=== PATIENT | female | born 1995 | race Two or more races ===

== ENCOUNTER 2024-03-16 18:47 | Emergency (ER) | payer MEDICAID, OTHER ==
[~2024-03-16] VITALS: Ht 167.6 cm; Wt 68.0 kg
--- NOTE | 2024-03-16 19:10 | NUR ---
Patient walked into ER c/o N/V with diarrhea that started this morning.
--- NOTE | 2024-03-16 19:28 | NUR ---
Dr. Sanchez at bedside for MSE.
[2024-03-16 19:51] LABS: BASOPHILS % (AUTO) 0.4 % (0.0-2.0); HEMATOCRIT 45.3 % (31.2-41.9); HEMOGLOBIN 15.1 g/dL (10.9-14.3); LYMPHOCYTES # (AUTO) 0.5 K/uL (0.8-4.8); LYMPHOCYTES % (AUTO) 7.9 % (20.5-51.5); MEAN CORPUSCULAR HEMOGLOBIN 27.4 uug (24.7-32.8); MEAN CORPUSCULAR HGB CONC 33 g/dL (32.3-35.6); MEAN CORPUSCULAR VOLUME 82.3 fL (75.5-95.3); MONOCYTES # (AUTO) 0.2 K/uL (0.1-1.30); MONOCYTES % (AUTO) 3.3 % (0.0-11.0); NEUTROPHILS # (AUTO) 6.1 K/uL (1.8-8.9); NEUTROPHILS % (AUTO) 88.4 % (38.5-71.5); PLATELET COUNT (AUTO) 241 K/uL (179-408); RED BLOOD CELL COUNT(AUTO) 5.51 MIL/uL (3.63-4.92); RED CELL DISTRIBUTION WIDTH 13.6 % (12.3-17.7); WHITE BLOOD COUNT (AUTO) 6.9 K/uL (3.8-11.8)
[2024-03-16 19:54] LABS: DIFFERENTIAL COMMENT 1
[2024-03-16] MEDS: IV NORMAL SALINE 1000 ML BAG IV ONE ×2 (19:57→21:31)
[2024-03-16 20:00] LABS: CALCIUM 9.4 mg/dL (8.5-10.1); CARBON DIOXIDE 24 mmol/L (21-32); CHLORIDE 102 mmol/L (98-107); CREATININE 0.5 mg/dL (0.6-1.3); GLUCOSE 119 mg/dL (74-106); POTASSIUM 3.7 mmol/L (3.5-5.1); SODIUM SERUM 138 mmol/L (136-145); UREA NITROGEN, BLOOD 11 mg/dL (7-18)
[2024-03-16 20:05] LABS: ALANINE AMINOTRANSFERASE 51 U/L (14-59); ALBUMIN 4.1 g/dL (3.4-5.0); ALKALINE PHOSPHATASE 137 U/L (50-136); ASPARTATE AMINOTRANSFERASE 13 U/L (15-37); BILIRUBIN,DIRECT 0.2 mg/dL (0.0-0.2); BILIRUBIN,TOTAL 0.8 mg/dL (0.2-1.0); LIPASE 20 U/L (16-77); TOTAL PROTEIN, SERUM 8.3 g/dL (6.4-8.2)
[2024-03-16 20:07] LABS: *URINE HCG, QUAL NEGATIVE (NEGATIVE)
[2024-03-16] MEDS ORDERED: ONDA4TAB5 PO (22:58)
[2024-03-16] MEDS ORDERED: PROP10TA10 PO (22:58)
[2024-03-16] MEDS ORDERED: DIPH1TAB PO (22:58)
--- NOTE | 2024-03-16 23:16 | NUR ---
Patient discharged to home in stable condition. Written and verbal after care instructions given. Patient verbalizes understanding of instructions. Stressed follow up or return to ER for worsening s/s. Patient ambulated out of the ER with steady gait. All belongings with patient.
[2024-03-16 23:17] VITALS: BP 122/85; O2SAT 100
== END 2024-03-16 23:17 | disposition home or self-care (01) ==
LOC: ER 18:48
DX: R19.7 Diarrhea, unspecified (principal); E03.9 Hypothyroidism, unspecified; E86.0 Dehydration; R10.2 Pelvic and perineal pain; Z90.49 Acquired absence of other specified parts of digestive tract; Z20.822 Contact with and (suspected) exposure to COVID-19; Z79.899 Other long term (current) drug therapy
CPT/HCPCS: 99283; 96360; 96361; 87426; 80076; 80048; 84703; 83690; 84443; 85025; J7040 ×2; 36415; A4606; A4663